=== PATIENT | male | born 1985 | race Caucasian/White ===

== ENCOUNTER 2017-11-04 18:48 | Emergency (ER) | payer BC, SELFPAY ==
[2017-11-04 20:10] VITALS: BP 167/80; PULSE 70; RESP 20; TEMP 36.4; O2SAT 98; BMI 29.0
[2017-11-04 20:31] LABS: UTC Influenza A Antigen Negative (Negative); UTC Influenza B Antigen Negative (Negative)
--- NOTE | 2017-11-04 20:39 | HMH.EDUTC ---
[facility] [place] Disposition Clinical Impression: Chills, Dark stools Headache Qualifiers: Headache type: unspecified Headache chronicity pattern: acute headache Intractability: not intractable Qualified Code(s): R51 - Headache Disposition: Home, Self-Care Condition on Discharge: Good Additional Instructions: Increase fluids Monitor temp so you know if chills are related to fever or not Tylenol and motrin as needed. Can take tylenol every 4 hours and motrin every 6 hours Labs were normal Follow up immediately for new or worsening symptoms but otherwise, see primary care in 1-2 days if symptoms persist. Referrals: Woody Granger MD [Primary Care Provider] - (Return immediately for new or worsening symptoms. Follow up with Dr. Granger' office in 1-2 days for persisting symptoms) Time of Disposition: 21:44 Medical Decision Making Vital Signs: 11/04/17 20:10 Temperature 97.5 F L Temperature Source Temporal Artery Scan Pulse Rate [Right Brachial] 70 Respiratory Rate 20 Blood Pressure [Right Arm] 167/80 Blood Pressure Mean [Right Arm] 109 Blood Pressure Source [Right Arm] Automatic Cuff Blood Pressure Position [Right Arm] Sitting 02 Sat by Pulse Oximetry 98 Oxygen Delivery Method Room Air - Lab Data Lab results reviewed: Yes: I reviewed the patient's lab results. Lab Results 11/04/17 20:08: Influenza Type A Ag Negative, Influenza Type B Ag Negative 11/04/17 20:50: WBC 7.0, RBC 5.49, Hgb 16.0, Hct 47.1, MCV 85.9, MCH 29.1, MCHC 33.9, RDW 12.1, Plt Count 161, MPV 10.3, Neut % (Auto) 59.4, Lymph % (Auto) 27.2, [place] % (Auto) 6.2, Eos % (Auto) 5.6, Baso % (Auto) 1.6, Neut # (Auto) 4.1, Lymph # (Auto) 1.9, [place] # (Auto) 0.4, Eos # (Auto) 0.4, Baso # (Auto) 0.1 11/04/17 20:50: Sodium 142, Potassium 3.9, Chloride 105, Carbon Dioxide 29, Anion Gap 11.9, BUN 17, Creatinine 1.00, Estimated Creat Clear 124, Estimated GFR 87, Est GFR ( Amer) 105, Glucose 103 Result diagrams: 11/04/17 20:50 11/04/17 20:50 Orders (Tests/Meds): ED MEDICATIONS Discontinued Medications Generic Name Dose Route Start Last Admin Trade Name Nadine PRN Reason Stop Dose Admin Ketorolac Tromethamine 30 mg 11/04/17 20:46 11/04/17 20:52 Toradol 30mg/Ml Vial IM 11/04/17 20:47 Not Given ONCE ONE - Marco Inquiry Pt receiving controlled substance: No - Reevaluation(s) Time: 21:45 Reevaluation #1: Reports feeling better already. SALAZAR 2/10 without medication. Reports refusing toradol because he doesn't like medications and doesn't want to take the risk of taking any medications and driving home. It is better now anyways . Says he mainly just wanted the blood work to ensure it was normal. [facility] [place] HPI - General Stated complaint: SALAZAR,Pain in Left Side Time Seen by Provider: 11/04/17 20:39 Mode of Arrival: Ambulatory Source of Information: Patient Limitations: No Limitations Description of Symptoms (Recalled from Triage Doc. by RN): headache, chills, body aches x2 days HEENT Symptoms (Recalled from RN notes): No Resp Symptoms (Recalled from RN notes): No Skin Symptoms (Recalled from RN notes): No MS Symptoms (Recalled from RN notes): Yes (body aches) Functional Status (Recalled from RN notes): n/a - History of Present Illness Provider Complaint: c/o headache starting at 5pm today. Intermittent since then. Resolved but came back worse. Tylenol at 5:30pm hasn't helped. Located in forehead, described as aching. Chills throughout the day today. No fever. Reporting he normally wouldn't have come in but his wanted him to today. Wants CBC. Reports he knows that when you loose blood, your H/H drops. I read that online today . Stool has been darker x months but not sticky or soft. Denies bodyaches all over although previously reported. No known sick contacts. - Related Data Allergies Allergy/AdvReac Type Severity Reaction Status Date / Time trimethoprim [From BACTRIM] Allergy Mild Verified 11/04/17 20:51 codeine [CODEINE] Vamsi
--- NOTE | 2017-11-04 20:46 | ED_ITS ---
[facility] [place] Impression: Chills, Dark stools Headache Qualifiers: Headache type: unspecified Headache chronicity pattern: acute headache Intractability: not intractable Qualified Code(s): R51 - Headache Disposition: Home, Self-Care Condition on Discharge: Good Additional Instructions: Increase fluids Monitor temp so you know if chills are related to fever or not Tylenol and motrin as needed. Can take tylenol every 4 hours and motrin every 6 hours Labs were normal Follow up immediately for new or worsening symptoms but otherwise, see primary care in 1-2 days if symptoms persist. Referrals: Woody Granger MD [Primary Care Provider] - (Return immediately for new or worsening symptoms. Follow up with Dr. Granger' office in 1-2 days for persisting symptoms) Time of Disposition: 21:44 Medical Decision Making Vital Signs: 11/04/17 20:10 Temperature 97.5 F L Temperature Source Temporal Artery Scan Pulse Rate [Right Brachial] 70 Respiratory Rate 20 Blood Pressure [Right Arm] 167/80 Blood Pressure Mean [Right Arm] 109 Blood Pressure Source [Right Arm] Automatic Cuff Blood Pressure Position [Right Arm] Sitting 02 Sat by Pulse Oximetry 98 Oxygen Delivery Method Room Air - Lab Data Lab results reviewed: Yes: I reviewed the patient's lab results. Lab Results 11/04/17 20:08: Influenza Type A Ag Negative, Influenza Type B Ag Negative 11/04/17 20:50: WBC 7.0, RBC 5.49, Hgb 16.0, Hct 47.1, MCV 85.9, MCH 29.1, MCHC 33.9, RDW 12.1, Plt Count 161, MPV 10.3, Neut % (Auto) 59.4, Lymph % (Auto) 27.2 , [place] % (Auto) 6.2, Eos % (Auto) 5.6, Baso % (Auto) 1.6, Neut # (Auto) 4.1, Lymph # (Auto) 1.9, [place] # (Auto) 0.4, Eos # (Auto) 0.4, Baso # (Auto) 0.1 11/04/17 20:50: Sodium 142, Potassium 3.9, Chloride 105, Carbon Dioxide 29, Anion Gap 11.9, BUN 17, Creatinine 1.00, Estimated Creat Clear 124, Estimated GFR 87, Est GFR ( Amer) 105, Glucose 103 Result diagrams: 11/04/17 20:50 11/04/17 20:50 Orders (Tests/Meds): ED MEDICATIONS Discontinued Medications Generic Name Dose Route Start Last Admin Trade Name Nadine PRN Reason Stop Dose Admin Ketorolac Tromethamine 30 mg 11/04/17 20:46 11/04/17 20:52 Toradol 30mg/Ml Vial IM 11/04/17 20:47 Not Given ONCE ONE - Marco Inquiry Pt receiving controlled substance: No - Reevaluation(s) Time: 21:45 Reevaluation #1: Reports feeling better already. SALAZAR 2/ without medication. Reports refusing toradol because he doesn't like medications and doesn't want to take the risk of taking any medications and driving home. It is better now anyways . Says he mainly just wanted the blood work to ensure it was normal. [facility] [place] General Stated complaint: SALAZAR,Pain in Left Side Time Seen by Provider: 11/04/17 20:39 Mode of Arrival: Ambulatory Source of Information: Patient Limitations: No Limitations Description of Symptoms (Recalled from Triage Doc. by RN): headache, chills, body aches x2 days HEENT Symptoms (Recalled from RN notes): No Resp Symptoms (Recalled from RN notes): No Skin Symptoms (Recalled from RN notes): No MS Symptoms (Recalled from RN notes): Yes (body aches) Functional Status (Recalled from RN notes): n/a - History of Present Illness Provider Complaint: c/o headache starting at 5pm today. Intermittent since then. Resolved but came back worse. Tylenol at 5:30pm hasn't helped. L
[2017-11-04 21:03] LABS: Basophils # 0.1 K/mm3 (0-0.2); Basophils % 1.6 % (0.1-2.0); Eosinophils # 0.4 K/mm3 (0.0-0.4); Eosinophils % 5.6 % (0.1-12.0); Hematocrit 47.1 % (42.0-52.0); Lymphocytes # 1.9 K/mm3 (0.7-4.5); Lymphocytes % 27.2 K/mm3 (10-50); Mean Corpuscular HGB Conc 33.9 g/dL (31.8-35.4); Mean Corpuscular Hemoglobin 29.1 pg (27.0-31.2); Mean Corpuscular Volume 85.9 fl (80-94); Mean Platelet Volume 10.3 fl (7.4-10.4); Monocytes # 0.4 K/mm3 (0.1-1.0); Monocytes % 6.2 % (1.7-9.3); Neutrophils # 4.1 K/mm3 (1.8-7.8); Neutrophils % 59.4 % (37.0-80.0); Platelet Count 161 K/mm3 (142-424); Red Blood Count 5.49 M/mm3 (4.60-6.20); Red Cell Distribution Width 12.1 % (11.5-17.5)
[2017-11-04 21:15] LABS: Anion Gap 11.9 mEq/L (5-15); Blood Urea Nitrogen 17 mg/dL (7-18); Carbon Dioxide 29 mmol/L (21.0-32.0); Chloride 105 mmol/L (98-107); Creatinine Clearance Estimated 124 mL/min (0-300); Estimated Glomerular Filt Rate 87 ml/min (>60); GFR (African American) 105 ML/MIN (>60); Glucose 103 mg/dL (74-106); Potassium 3.9 mmoL/L (3.5-5.1); Sodium 142 mmol/L (136-145)
[2017-11-04 21:54] VITALS: BP 160/80; PULSE 74; RESP 20; TEMP 36.7; O2SAT 98
== END 2017-11-04 21:55 | disposition home or self-care (01) ==
PROVIDERS: Emergency Provider Nurse Practitioner Family; Family Provider Family Medicine; PCP Family Medicine
DX: R51 Headache (principal); R68.83 Chills (without fever); R19.5 Other fecal abnormalities; R10.12 Left upper quadrant pain
CPT/HCPCS: 80048; 85025; 87804; 99202

== ENCOUNTER → 2018-01-31 09:12 | Outpatient (CLI) | payer BC, SELFPAY ==
--- NOTE | 2018-01-31 10:30 | US_ITS ---
US abdomen limited: HISTORY: Upper abdominal pain with diarrhea ITS.REASON: DIARRHEA, FATIGUE, NAUSEA ORDERING PHYSICIAN: Rosario Vila PATIENT AGE: 32 years FINDINGS: PANCREAS: Only partially visible due to overlying bowel gas. LIVER: No focal liver lesions demonstrated. Homogeneous echogenicity. No intrahepatic biliary ductal dilatation evident RIGHT KIDNEY: Unremarkable. Normal size and echogenicity. No hydronephrosis GALLBLADDER: The gallbladder wall is slightly thickened measuring up to 4 mm. No shadowing stones, cholecystic fluid, or biliary dilatation. There is a mild amount sludge. IMPRESSION: 1. Mildly thickened gallbladder wall with mild amount of sludge 2. No shadowing stones or other significant anomalies. 3. Pancreas not well-demonstrated
--- NOTE | 2018-01-31 10:36 | NVE_ITS ---
Venous Exam Indications: 729.5 Pain in limb. IMPRESSIONS Deep vein thrombosis involving the brachial veins of the right upper extremity History: Right upper extremity pain. Risk factors: Recent IV stick 1 week prior to exam redness pain Right upper extremity venous duplex. Doppler flow study including spectral analysis, color and saba scale imaging. CRITICAL FINDINGS - Reported to: Laurel - Read back and verified. - 01/31/18 - 1100 - Dvt Tables: Venous flow and imaging: + + + Location Flow properties + + + Right internal jugular Normal phasicity; spontaneous; compressible + + + Right subclavian Normal phasicity; spontaneous; normal augmentation; compressible + + + Right axillary Normal phasicity; spontaneous; normal augmentation; compressible + + + Right brachial Diminished phasicity; diminished spontaneity; diminished augmentation; partially compressible + + + Right cephalic Normal phasicity; spontaneous; normal augmentation; compressible + + + Right basilic Normal phasicity ; spontaneous; normal augmentation; compressible + + + Right radial Compressible + + + Right ulnar Compressible + + + Left subclavian Normal phasicity; spontaneous; normal augmentation; compressible + + + (Report amended ) Electronically signed by: Vladimir Johns [id number]
== END ==
PROVIDERS: Family Provider Family Medicine; PCP Family Medicine; Visit Provider Nurse Practitioner
DX: R19.7 Diarrhea, unspecified (principal); R53.83 Other fatigue; R11.0 Nausea; R22.9 Localized swelling, mass and lump, unspecified; M79.89 Other specified soft tissue disorders
CPT/HCPCS: 76705; 93971

== ENCOUNTER → 2018-02-18 09:59 | Outpatient (CLI) | payer BC, SELFPAY ==
--- NOTE | 2018-02-18 10:04 | NM_ITS ---
NM hepatobiliary wo pharm HISTORY: ITS.REASON: RUQ PAIN ORDERING PHYSICIAN: Rosario Vila PATIENT AGE: 32 years COMPARISON: None DOSE: 8.38 MCI TC Myoview INJ into LT ANT Fatty Meal Ensure FINDINGS: Homogeneous activity is present within the hepatic parenchyma. Activity is present in the gallbladder by 20 minutes. Activity is present in the small bowel by 15 minutes. The gallbladder ejection fraction is calculated to be 67% The patient did not report pain or other symptoms during the fatty meal ingestion. IMPRESSION: Unremarkable hepatobiliary scan and gallbladder ejection fraction. No evidence of common or cystic duct obstruction with normal gallbladder ejection fraction
== END ==
PROVIDERS: Family Provider Family Medicine; PCP Family Medicine; Visit Provider Nurse Practitioner
DX: R10.11 Right upper quadrant pain (principal)
CPT/HCPCS: 78226; A9537

== ENCOUNTER 2019-05-31 21:07 | Observation (INO) ==
[2019-05-31 21:32] LABS: Basophils # 0.1 K/mm3 (0-0.2); Basophils % 1.5 % (0.1-2.0); Eosinophils # 0.5 K/mm3 (0.0-0.4); Eosinophils % 5.5 % (0.1-12.0); Hematocrit 44.1 % (42.0-52.0); Hemoglobin 15.2 g/dL (14.1-18.0); Lymphocytes % 23.7 % (10-50); Mean Corpuscular HGB Conc 34.5 g/dL (31.8-35.4); Mean Corpuscular Volume 86.5 fl (80-94); Mean Platelet Volume 9.2 fl (7.4-10.4); Monocytes # 0.7 K/mm3 (0.1-1.0); Neutrophils # 5.1 K/mm3 (1.8-7.8); Neutrophils % 61.3 % (37.0-80.0); Platelet Count 196 K/mm3 (142-424); Red Cell Distribution Width 12.1 % (11.5-17.5); White Blood Count 8.3 K/mm3 (4.8-10.8)
[2019-05-31 21:43] LABS: Anion Gap 12.9 mEq/L (5-15); Blood Urea Nitrogen 17 mg/dL (7-18); Calcium 9.1 mg/dL (8.5-10.1); Carbon Dioxide 27 mmol/L (21.0-32.0); Chloride 103 mmol/L (98-107); Glucose 94 mg/dL (74-106); Sodium 139 mmol/L (136-145)
--- NOTE | 2019-05-31 22:03 | Emergency Department Note ---
ED Disposition Clinical Impression: Chest pain Qualifiers: Chest pain type: precordial pain Qualified Code(s): R07.2 - Precordial pain Disposition: Admitted as Observation Condition on Discharge: Good Referrals: Woody Granger MD [Primary Care Provider] - - Critical Care Critical Care Time: No Attestation: On 05/31/19, the high probability of a clinically significant, sudden or life threatening deterioration of the following system(s) required my full and direct attention, intervention and personal management. The time I documented below is in addition to time spent performing reported procedures but includes the following listed in this critical care notation. Medical Decision Making - Medical Records Medical records reviewed: Yes: I reviewed the patient's medical records. - Marco Inquiry Pt receiving controlled substance: No Vital Signs: 05/31/19 21:09 05/31/19 21:15 05/31/19 21:20 Temperature 98.7 F 98.3 F Temperature Source Oral Oral Pulse Rate [Right Radial] 96 H 86 80 Pulse Rate [Right] 75 Respiratory Rate 24 18 24 Blood Pressure [Right Arm] 112/65 122/79 125/77 Blood Pressure Mean [Right Arm] 80 93 93 Blood Pressure Source [Right Arm] Automatic Cuff Automatic Cuff Automatic Cuff Blood Pressure Position [Right Arm] Supine Supine Supine 02 Sat by Pulse Oximetry 98 98 98 Oxygen Delivery Method Room Air Room Air Room Air 05/31/19 21:25 05/31/19 21:30 05/31/19 21:39 Temperature Temperature Source Pulse Rate [Right Radial] 76 78 70 Pulse Rate [Right] Respiratory Rate 24 16 18 Blood Pressure [Right Arm] 118/75 119/51 L 118/70 Blood Pressure Mean [Right Arm] 89 73 86 Blood Pressure Source [Right Arm] Automatic Cuff Automatic Cuff Automatic Cuff Blood Pressure Position [Right Arm] Supine Supine Supine 02 Sat by Pulse Oximetry 98 98 98 Oxygen Delivery Method Room Air Room Air Room Air - Lab Data Lab results reviewed: Yes: I reviewed the patient's lab results. Lab Results 05/31/19 21:07: WBC 8.3, RBC 5.10, Hgb 15.2, Hct 44.1, MCV 86.5, MCH 29.9, MCHC 34.5, RDW 12.1, Plt Count 196, MPV 9.2, Neut % (Auto) 61.3, Lymph % (Auto) 23.7, [place] % (Auto) 8.0, Eos % (Auto) 5.5, Baso % (Auto) 1.5, Neut # (Auto) 5.1, Lymph # (Auto) 2.0, [place] # (Auto) 0.7, Eos # (Auto) 0.5 H, Baso # (Auto) 0.1 05/31/19 21:07: Sodium 139, Potassium 3.9, Chloride 103, Carbon Dioxide 27, Anion Gap 12.9, BUN 17, Creatinine 1.09, Estimated Creat Clear 97, Estimated GFR 78, Est GFR ( Amer) 95, Glucose 94, Calcium 9.1, Troponin I < 0.02 Result diagrams: 05/31/19 21:07 05/31/19 21:07 Orders (Tests/Meds): ED MEDICATIONS Generic Name Dose Route Start Last Admin Trade Name Freq PRN Reason Stop Dose Admin Sodium Chloride 1,000 mls @ 999 mls/hr 05/31/19 21:30 05/31/19 21:22 Sod Chlor 0.9% 1000ml Bag IV 05/31/19 22:30 999 mls/hr .Q1H1M EMILIE Administration Discontinued Medications Generic Name Dose Route Start Last Admin Trade Name Freq PRN Reason Stop Dose Admin Aspirin 324 mg 05/31/19 21:16 05/31/19 21:21 Aspirin 81mg Chewable Tablet PO 05/31/19 21:17 324 mg ONCE ONE Administration Nitroglycerin 0.4 mg 05/31/19 21:16 05/31/19 21:21 Nitrostat 0.4mg Sl Tablet SL 05/31/19 21:17 1 tab ONCE ONE Administration Nitroglycerin 0.4 mg 05/31/19 21:22 05/31/19 21:23 Nitrostat 0.4mg Sl Tablet SL 05/31/19 21:23 1 tab ONCE ONE Administration Nitroglycerin 1 gm 05/31/19 21:22 05/31/19 21:25 Nitroglycerin 1 Inch Oint Udp TD 05/31/19 21:23 1 gm ONCE ONE Administration ORDERS Category Date Time Status XR chest 2V Stat Exams 05/31/19 21:16 Taken Lipid Panel Stat Lab 05/31/19 22:21 Ordered - Radiology Data #1 Image(s): Chest Image Reviewed: Yes I reviewed the patient's radiology image Preliminary Findings: Normal/NAD - ECG Data Tracing #1 Normal Sinus Rhythm: Yes Ischemic changes: non-specific ST-T wave changes - Physician Consults Physician Consulted: lia Reason -: Admission Chest Pain HPI - General Chief Complaint: Chest Pain Stated Complaint: Chest Pain Time Seen by Provider: 05/31/19 21:15 Mode of Arrival: Ambulatory Source of Information: Patient, Spouse, Medical Record Limitations: No Limitations Description of Symptoms (Recalled from ER Triage Doc. by RN): Pt states he has had left chest pain for 2 weeks - History of Present Illness HPI narrative: wm with episodes of ant chest pain progressive over the last week both with act and rest - described as pressure - he saw pcp and is planning cardiac eval MD complaint: chest pain indicative of cardiac Onset (ago): day(s) Duration: intermittent Activity at onset: during rest Pain location: substernal Severity: moderate Risk Factors for CAD: Family Hx of CAD Treatments prior to or on arrival for Cardiac Chest Pain: none - GLADYS Score for Non-Stemi Age of Patient: 30-39 years old Heart Rate: 90-109 bpm Systolic Blood Pressure: 100-119 mmHg Serum Creatinine: 0.80-1.19 mg/dl CHF [place] Class: I-No CHF Other Risk Factors: None Non-Stemi Risk Score: 73 - Related Data Home Medications Medication Instructions Recorded Confirmed No Known Home Medications 11/24/18 05/31/19 Allergies Allergy/AdvReac Type Severity Reaction Status Date / Time trimethoprim [From BACTRIM] Allergy Mild Verified 01/06/19 10:10 codeine [CODEINE] Allergy Unknown Verified 01/06/19 10:10 [facility] History - Hepatitis A Screen Drug use history?: No High risk sexual behaviors?: No History of sexually transmitted infection?: No Currently employed?: No Childcare worker?: No Do you have indoor plumbing?: Yes Do you have electricity?: Yes Attestation statement:: This patient has been screened for Hepatitis A risk factors. I have reviewed the patient's past medical history: Yes Medical History: Reports:: Depression Denies:: Cancer, Diabetes Mellitus Type 1, Diabetes Mellitus Type 2, Hypertension, Internal Pacemaker, MRSA, Seizures Other Medical History: Denies: Blood Transfusion Reaction Comment: DVT Laterality Cases: Bilateral: Myringotomy (Ear Tubes) Other Surgeries: Yes: No Previous Surgery. No: Pacemaker Amputation: No Fractures: No - Social History Smoking Status: Never smoker Alcohol Intake: never Substance Use Type: denies use Occupational Status: employed Housing: house Household Members: family - Psychiatric History Pschychiatric History:: Reports:: Depression Family Hx:: Cancer, Diabetes ROS Obtained: Yes All systems reviewed & no additional complaints - Constitutional Constitutional: Denies fever(s) - Eyes Eyes: Denies change in vision - ENT Ears, Nose, Mouth, and Throat: Denies sore throat - Cardiovascular Cardiovascular: Reports chest pain, Denies dyspnea - Respiratory Respiratory: No cough - Gastrointestinal Gastrointestingal: Denies: abdominal pain - Genitourinary Male Genitourinary: Denies hematuria - Musculoskeletal Musculoskeletal: Denies joint pain - Integumentary/Breasts Skin/Breast: Denies rash - Neurologic Neurologic: Denies seizure-like activity Physical Exam - General General appearance: alert - Head Head exam: normocephalic - Eye Eye exam: Present: PERRL, EOMI - ENT ENT exam: Present: mucous membranes moist - Neck Neck exam: Present: trachea midline - Respiratory Respiratory exam: Present: normal lung sounds bilaterally. Absent: respiratory distress - Cardiovascular Cardiovascular exam: Present: regular rate, systolic murmur. Absent: rubs - Abdominal Exam Abdominal exam: Present: soft - Extremities Exam Extremities exam: Present: full ROM - Neurological Exam Neurological exam: Present: alert, oriented X3, CN II-XII intact - Psychiatric Psychiatric exam: Present: normal affect - Skin Skin exam: Absent: rash
[2019-06-01 04:54] LABS: Anion Gap 11.5 mEq/L (5-15); Blood Urea Nitrogen 14 mg/dL (7-18); Calcium 8.3 mg/dL (8.5-10.1); Carbon Dioxide 29 mmol/L (21.0-32.0); Chloride 106 mmol/L (98-107); Glucose 95 mg/dL (74-106); Sodium 143 mmol/L (136-145)
[2019-06-01 05:00] LABS: Basophils # 0.1 K/mm3 (0-0.2); Basophils % 1.5 % (0.1-2.0); Eosinophils # 0.5 K/mm3 (0.0-0.4); Eosinophils % 6.8 % (0.1-12.0); Hemoglobin 13.5 g/dL (14.1-18.0); Lymphocytes # 1.9 K/mm3 (0.7-4.5); Lymphocytes % 27.6 % (10-50); Mean Corpuscular HGB Conc 34.5 g/dL (31.8-35.4); Mean Corpuscular Volume 87.3 fl (80-94); Mean Platelet Volume 9.1 fl (7.4-10.4); Monocytes # 0.6 K/mm3 (0.1-1.0); Monocytes % 8.5 % (1.7-9.3); Neutrophils # 3.8 K/mm3 (1.8-7.8); Neutrophils % 55.6 % (37.0-80.0); Platelet Count 175 K/mm3 (142-424); Red Blood Count 4.47 M/mm3 (4.60-6.20); Red Cell Distribution Width 12.1 % (11.5-17.5); White Blood Count 6.8 K/mm3 (4.8-10.8)
--- NOTE | 2019-06-01 07:20 | Pharmacy Consult Notes ---
[facility] Pharmacy VTE Monitoring - Patient Demographics Admission date: 05/31/19 Report Date: 06/01/19 Time: 07:19 Allergies/Adverse Reactions: Patient Allergies trimethoprim [From BACTRIM] Allergy (Mild, Verified 01/06/19 10:10) codeine [CODEINE] Allergy (Unknown, Verified 01/06/19 10:10) Height: 1.65 m Weight: 68.577 kg Patient Problems: Current Active Problems Chest pain (Acute) - VTE Risk Labs: VTE Related Lab Results Hgb 13.5 g/dL (14.1-18.0) L D 06/01/19 04:30 Hct 39.0 % (42.0-52.0) L 06/01/19 04:30 Plt Count 175 K/mm3 (142-424) 06/01/19 04:30 BUN 14 mg/dL (7-18) 06/01/19 04:30 Creatinine 1.04 mg/dL (0.70-1.30) 06/01/19 04:30 Estimated Creat Clear 98 mL/min (50-200) 06/01/19 04:30 Was VTE Risk Assessment Performed: Yes VTE Score: 2 VTE Risk Level: Moderate Risk - Prophylaxis VTE Prophylaxis Ordered?: Yes Types of VTE Prophylaxis: TEDS Knee High Location of Applied Device: Bilateral Lower Extremeties - VTE Diagnosis Confirmed Treatment or plan recommended: Continue Current Treatment
--- NOTE | 2019-06-01 07:22 | H&P/Discharge Summary ---
General - General Admission date:: 05/31/19 Discharge date: 06/01/19 *Admission Date: 05/31/19 *Chief complaint: Chest pain *History of present illness: 33-year-old male presented to the emergency department with 2 weeks of episodes of chest pain. Apparently he had been seen in the office and cardiac work-up was suggested. Patient became afraid by his chest pain yesterday evening and came to the emergency department. Patient reports pain in the upper left chest and anterior shoulder. Pain occurs at rest. Patient states pain is been so severe at times over the last 2 weeks that he has doubled over in pain. Pain does not radiate down the arm. Sometimes taking a deep breath or coughing will trigger the pain. Some movements of the upper body will trigger the pain. Patient does not have hypertension, hyperlipidemia, diabetes nor is he a smoker. His father who is in his mid 60s recently had to have bypass surgery. His father is a smoker. Patient ruled out for OK overnight and had no recurrence of chest pain [facility] History I have reviewed the patient's past medical history: Yes Medical History: Reports:: Depression Denies:: Cancer, Diabetes Mellitus Type 1, Diabetes Mellitus Type 2, Hypertension, Internal Pacemaker, MRSA, Seizures *Have you ever received a pneumonia vaccine?: No *Have you received a flu vaccine this season?: No Other Medical History: Denies: Blood Transfusion Reaction Laterality Cases: Bilateral: Myringotomy (Ear Tubes) Other Surgeries: Yes: No Previous Surgery, Cholecystectomy. No: Pacemaker Amputation: No Fractures: No - *Social History Educational Level: Completed High School Smoking Status: Never smoker Alcohol Intake: never Substance Use Type: denies use *Occupational Status:: employed Housing: house Household Members: family *Travel in the last 8 weeks: None - Psychiatric History Pschychiatric History:: Reports:: Depression Family Hx:: Cancer, Diabetes Review of Systems - Review of Systems Review of systems:: pertinent systems reviewed and negative unless documented below - *Neurologic Denies seizure-like activity Exam Vital signs and Labs for Last 24 Hours: Temp Pulse Resp BP Pulse Ox 98.1 F 60 15 111/53 L 96 06/01/19 03:47 06/01/19 04:00 06/01/19 03:47 06/01/19 03:47 06/01/19 03:47 Laboratory Results - last 24 hr 05/31/19 21:07: WBC 8.3, RBC 5.10, Hgb 15.2, Hct 44.1, MCV 86.5, MCH 29.9, MCHC 34.5, RDW 12.1, Plt Count 196, MPV 9.2, Neut % (Auto) 61.3, Lymph % (Auto) 23.7, [place] % (Auto) 8.0, Eos % (Auto) 5.5, Baso % (Auto) 1.5, Neut # (Auto) 5.1, Lymph # (Auto) 2.0, [place] # (Auto) 0.7, Eos # (Auto) 0.5 H, Baso # (Auto) 0.1 05/31/19 21:07: Sodium 139, Potassium 3.9, Chloride 103, Carbon Dioxide 27, Anion Gap 12.9, BUN 17, Creatinine 1.09, Estimated Creat Clear 97, Estimated GFR 78, Est GFR ( Amer) 95, Glucose 94, Calcium 9.1, Troponin I < 0.02 06/01/19 01:35: Troponin I < 0.02 06/01/19 04:30: WBC 6.8, RBC 4.47 L, Hgb 13.5 L D, Hct 39.0 L, MCV 87.3, MCH 30 .1, MCHC 34.5, RDW 12.1, Plt Count 175, MPV 9.1, Neut % (Auto) 55.6, Lymph % (Auto) 27.6, [place] % (Auto) 8.5, Eos % (Auto) 6.8, Baso % (Auto) 1.5, Neut # (Auto) 3.8, Lymph # (Auto) 1.9, [place] # (Auto) 0.6, Eos # (Auto) 0.5 H, Baso # (Auto) 0.1 06/01/19 04:30: Sodium 143, Potassium 3.5, Chloride 106, Carbon Dioxide 29, Anion Gap 11.5, BUN 14, Creatinine 1.04, Estimated Creat Clear 98, Estimated GFR 83, Est GFR ( Amer) 100, Glucose 95, Calcium 8.3 L, Magnesium 2.1, Troponin I < 0.02 I & O for Last 24 hours: Intake & Output 05/29/19 05/30/19 05/31/19 06/01/19 11:59 11:59 11:59 11:59 Intake Total 1480 / 1480 Balance 1480 / 1480 Weight 151 lb 3 oz Narrative: Patient is awake and alert laying in bed. He is in no distress. Head is without lesions. Pupils are reactive to light. Oropharynx is moist and clear. Neck has no carotid bruits or jugular venous distention. Lungs are clear to auscultation. Heart has a regular rate and rhythm. No murmurs auscultated. Abdomen is soft nontender nondistended. Extremities have no edema. Hospital Course Hospital Course: Patient ruled out for OK overnight and had no recurrence of chest pain. He was discharged home on the morning of June 01 and can complete his work-up as an outpatient try to reassure the patient that he is at extremely low risk of coronary artery disease Results Labs on day of discharge: Labs from last 24 hours 06/01/19 06/01/19 06/01/19 04:30 04:30 01:35 WBC 6.8 RBC 4.47 L Hgb 13.5 L D Hct 39.0 L MCV 87.3 MCH 30.1 MCHC 34.5 RDW 12.1 Plt Count 175 MPV 9.1 Neut % (Auto) 55.6 Lymph % (Auto) 27.6 [place] % (Auto) 8.5 Eos % (Auto) 6.8 Baso % (Auto) 1.5 Neut # (Auto) 3.8 Lymph # (Auto) 1.9 [place] # (Auto) 0.6 Eos # (Auto) 0.5 H Baso # (Auto) 0.1 Sodium 143 Potassium 3.5 Chloride 106 Carbon Dioxide 29 Anion Gap 11.5 BUN 14 Creatinine 1.04 Estimated Creat Clear 98 Estimated GFR 83 Est GFR ( Amer) 100 Glucose 95 Calcium 8.3 L Magnesium 2.1 Troponin I < 0.02 < 0.02 05/31/19 05/31/19 21:07 21:07 WBC 8.3 RBC 5.10 Hgb 15.2 Hct 44.1 MCV 86.5 MCH 29.9 MCHC 34.5 RDW 12.1 Plt Count 196 MPV 9.2 Neut % (Auto) 61.3 Lymph % (Auto) 23.7 [place] % (Auto) 8.0 Eos % (Auto) 5.5 Baso % (Auto) 1.5 Neut # (Auto) 5.1 Lymph # (Auto) 2.0 [place] # (Auto) 0.7 Eos # (Auto) 0.5 H Baso # (Auto) 0.1 Sodium 139 Potassium 3.9 Chloride 103 Carbon Dioxide 27 Anion Gap 12.9 BUN 17 Creatinine 1.09 Estimated Creat Clear 97 Estimated GFR 78 Est GFR ( Amer) 95 Glucose 94 Calcium 9.1 Magnesium Troponin I < 0.02 DS: Diagnosis - Discharge Diagnosis (1) Chest pain Status: Acute (2) Shoulder pain Status: Acute Discharge Plan - Patient Discharge Instructions ACTIVITY: Continue current activity DIET: continue same diet Patient Instructions: Heart-Healthy Diet, DI for Chest Pain - Follow up Plan Disposition: Home, Self-Long-Term Medications: Home Medications Medication Instructions Recorded Confirmed Type No Known Home Medications 11/24/18 05/31/19 History Meloxicam 15 mg PO DAILY #30 tab 06/01/19 Rx Prescriptions/Medication Reconciliation: New Meloxicam 15 mg PO DAILY #30 tab No Action No Known Home Medications - Problem Reconciliation Problems Reviewed?: Yes
--- NOTE | 2019-06-01 19:23 | Cardiology Report ---
APPROVED REPORT EXAM: Comprehensive 2D, Doppler, and color-flow Echocardiogram Automotive Worker: Katlyn Padilla CRT Ht: 5 ft 5 in Wt: 155lbs BSA: 1.77 BP: 118/70 mmHg Indications: CP 2D Dimensions IVSd 1.40 cm LVEF (Visual) 50.70 % PWd 1.10 cm LVDd 4.30 cm LVDs 3.20 cm LVOT 2.00 cm (M/F) 1.5-2.5 M-Mode Dimensions LA Diam 3.40 cm (1.9-4.0)Ao Diam 3.40 cm (2.0-3.7) AV Cusp 2.30 cm (1.5-2.6) LV Diastology E/A Ratio 1.50MED E' 7.80 (< 7 cm/sec) E'/MED E' Ratio11.40 (>14)LAT E' 14.90 (<10 cm/sec) E/LAT E' Ratio 6.00 (>14) Aortic Valve AoV Peak David. 121.00 (50-130 cm/s)AO Peak GR. 6.00 mmHg Mitral Valve MV E Max David. 89.30 (40-130 cm/s)MV A Velocity 60.20 (40-130 cm/s) E/A Ratio 1.50 Pulmonary Valve LA End VMAX 117.00 cm/s PA Accel Time 141.00 (>120 msec) Tricuspid Valve TR P. Avewpuln102.00 cm/sRAP Estimate 10.00 mmHg RVSP 32.00 mmHg Left Ventricle Left atrium is mildly enlarged, left ventricle is normal size, left ventricle wall thickness is upper limit of the normal, there is preserved left ventricular systolic function, visually estimated ejection fraction 55% with no regional wall motion abnormality. Grade 1 diastolic dysfunction seen without tissue Doppler evidence of raise left atrial pressure. Right Ventricle Right atrium and right ventricular normal size and contractility. Aortic Valve Aortic valve is minimally thickened and calcified., There is no aortic stenosis, there is trace aortic insufficiency. Mitral Valve Mitral valve leaflets are minimally thickened, there is no mitral stenosis, there is mild mitral regurgitation. Tricuspid Valve Tricuspid valve is grossly normal, there is mild tricuspid regurgitation, tricuspid regurgitation jet velocity is inadequate for calculation of the right ventricular systolic pressure. Pulmonic Valve Pulmonic valve is poorly visualized. Great Vessels Aortic root is normal size. Pericardium No significant pericardial effusion noted. Conclusion 1. Normal left ventricular size, preserved left ventricular systolic function, visually estimated ejection fraction 55% with no regional wall motion abnormality, grade 1 diastolic dysfunction seen without tissue Doppler evidence of raise left atrial pressure. 2. Trace aortic, mild mitral and tricuspid regurgitation. 3. No significant pericardial effusion noted. Electronically signed by : Daniel Bush, 06/01/2019 19:23:01
--- NOTE | 2019-06-02 19:59 | Electrocardiograph Report ---
APPROVED REPORT Exam: Resting ECG HR:72 bpm ECG Measurements Heart Rate 72 AXES MD 162 P 39 QRSd 88 QRS 76 QT 404 T42 QTc 442 <Conclusion> Normal sinus rhythm Normal ECG Electronically signed by : Woody Collado, 06/02/2019 19:58:54
== END 2019-06-01 08:40 | disposition home or self-care (01) ==
LOC: 2ND 21:07 → ER 21:07 → 2ND 22:40
PROVIDERS: ADMIT Internal Medicine Adolescent Medicine; ATTEND Family Medicine
DX: R07.9 Chest pain, unspecified
CPT/HCPCS: 36415; 71020; 71046; 80048; 83735; 84484; 85025; 93005; 93306; 96365; 99284; G0378

== ENCOUNTER → 2019-06-10 07:59 | Outpatient (CLI) | payer BC, SELFPAY ==
--- NOTE | 2019-06-10 | CA_ITS ---
APPROVED REPORT Exam: Exercise Treadmill Technologist: Gaviota Fox, Ht: 5 ft 5 in Wt: 153 lbs BSA: 1.77 m2 HR: 84 bpm BP: 119/77 mmHg Indications: Chest pain, Shortness of Breath, Dizziness Stress Test Details Test: Víctor HR Resting HR: 75 bpm Max Heart Rate (APMHR): 188 bpm Max HR Achieved: 152 bpm Target HR (85% APMHR): 159 bpm % of APMHR: 80 Recovery HR: 95 bpm BP Resting BP: 119/77 mmHg Max BP: 131/82 mmHg Recovery BP: 116.0/76.0 mmHg ECG Clinical Exercise duration: 11:06 min Highest Stage Achieved: Exercise capacity: 12.8 METs Stress ECG Conclusion Resting ECG: Normal sinus rhythm, right axis deviation, T wave abnormality in III, aVF, early repolarization changes. Symptoms: Mild chest heaviness, light headed Arrhythmias/Ectopy: Rare PVC ST-T Changes: No significant changes in baseline abnormalities in leads III and aVF with exercise. Normal ST response to exercise in all other leads. Conclusion: Mild chest pain with exercise. Normal exercise stress EKGs. GXT only (no imaging). Test Summary Stage 4 01:00 16.0 4.2 144 . . . . REST . . . . . . . Standing REST 05:53 0.0 0.0 75 . 119/ 77 . . Stage 1 01:00 10.0 1.7 93 . . . . Stage 1 02:00 10.0 1.7 99 . . . . Stage 1 03:00 10.0 1.7 96 . . . . Stage 2 01:00 12.0 2.5 104 . 118/ 80 . . Stage 2 02:00 12.0 2.5 110 . 118/ 80 . . Stage 2 03:00 12.0 2.5 110 . 124/ 80 . . Stage 3 01:00 14.0 3.4 120 . . . . Stage 3 02:00 14.0 3.4 127 . . . . Stage 3 . . . . . . . Chest pain Stage 3 03:00 14.0 3.4 121 . 130/ 78 . . Stage 4 01:00 16.0 4.2 144 . . . . Stage 4 02:00 16.0 4.2 152 . . . . Stage 4 02:06 16.0 4.2 151 . . . Stop exercise at 11:06 RECOVERY . . . . . . . lightheaded RECOVERY 01:00 0.0 0.0 124 . . . . RECOVERY 02:00 0.0 0.0 96 . 124/ 82 . . RECOVERY 03:00 0.0 0.0 112 . 131/ 82 . . RECOVERY 04:00 0.0 0.0 91 . 131/ 82 . . RECOVERY 05:00 0.0 0.0 101 . 131/ 82 . . RECOVERY 05:24 0.0 0.0 91 . 116/ 76 . . Electronically signed by : Woody Collado, 06/10/2019 10:33:51
--- NOTE | 2019-06-10 | CA_ITS ---
APPROVED REPORT Social Services Designee: ALEXANDRO Laterality: Bilateral Study Quality: Good Indications: Dizziness and Vertigo Risk Factors Left sided weakness and numbness Doppler Spectral Velocity Analysis ECA (R) 105.00/ cm/s ECA (L) 93.70/ cm/s dICA (R) 61.50/30.00 cm/s dICA (L) 57.80/27.70 cm/s Mimi (R) 77.50/33.50 cm/s Mimi (L) 71.50/32.20 cm/s pICA (R) 80.10/31.40 cm/s pICA (L) 76.20/28.30 cm/s dCCA (R) 98.20/28.30 cm/s dCCA (L) 102.00/33.00 cm/s pCCA (R) 131.00/22.80 cm/s pCCA (L) 119.00/30.60 cm/s Vert (R) 41.30/ cm/s Vert (L) 38.80/ cm/s ICA/CCA 0.82 ICA/CCA 0.75 Conclusion Duplex evaluation demonstrates no evidence of hemodynamically significant stenosis of the right Internal Carotid Artery. Duplex evaluation demonstrates no evidence of hemodynamically significant stenosis of the left external Carotid Artery. Electronically signed by : Vladimir Johns MD 06/11/2019 16:33:38
== END ==
PROVIDERS: PCP Family Medicine; Visit Provider Nurse Practitioner
DX: R07.9 Chest pain, unspecified (principal); R06.02 Shortness of breath; R53.83 Other fatigue; R42 Dizziness and giddiness
CPT/HCPCS: 93017; 93880

== ENCOUNTER 2021-06-05 20:00 | Emergency (ER) | payer OTHER, SELFPAY ==
[2021-06-05 20:40] VITALS: BP 117/78; PULSE 93; RESP 18; TEMP 38.2; O2SAT 96; BMI 28.2
--- NOTE | 2021-06-05 21:03 | HMH.EDUTC ---
[facility] [place] [facility] Disposition Clinical Impression: Bronchitis Sinusitis Qualifiers: Sinusitis location: unspecified location Chronicity: unspecified Qualified Code(s): J32.9 - Chronic sinusitis, unspecified Disposition: Home, Self-Care Condition on Discharge: Good Instructions: Sinusitis, DI for Sinusitis, Acute Bronchitis Additional Instructions: ? Start antibiotic today. Be sure to complete entire prescription even if feeling better ? Monitor temp. Tylenol every 4 hours as needed and / or ibuprofen every 6 hours as needed ( As long as your primary care physician has told you that it ok to take both. For fever/aches/pains ER if no less than 101 despite Tylenol or Motrin ? Humidifier/vaporizer or hot steamy shower ? Inhaler every 4-6 hours as needed like we discussed. If unsure how to use it, ask pharmacist to demonstrate how. Should help open airways and improve cough, wheezing, and shortness of breath ? Mucinex during the day for your cough and cough suppressant only at night. Be sure to drink lots of water. Insurance may not cover a prescriptions for mucinex. Might be cheaper to get 400mg tablets and take 2 tablet in the morning, mid-day and evening with lots of water. Follow up IMMEDIATELY for new or worsening of symptoms OR no noticeable improvement over the next 48-72 hours. 911 immediately for any life threatening symptoms such as chest pain or difficulty breathing Prescriptions: Albuterol Sulfate [Proventil-HFA 90mcg/puff Inh] 1 - 2 puffs IH Q6HP PRN #1 each PRN Reason: Shortness Of Breath Prescription Printed Azithromycin [Z-Epi 250mg Tab] 250 mg PO DIRECTED #6 tab Prescription Printed Referrals: Woody Granger MD [Primary Care Provider] - As needed Time of Disposition: 21:12 Medical Decision Making - Marco Inquiry Pt receiving controlled substance: No Marco was queried for this patient: No Vital Signs: 06/05/21 20:40 Temperature 100.7 F H Temperature Source Oral Pulse Rate [Right Brachial] 93 H Respiratory Rate 18 Blood Pressure [Right Arm] 117/78 Blood Pressure Mean [Right Arm] 91 Blood Pressure Source [Right Arm] Automatic Cuff Blood Pressure Position [Right Arm] Sitting 02 Sat by Pulse Oximetry 96 Oxygen Delivery Method Room Air [facility] HPI - General Stated complaint: SOB Time Seen by Provider: 06/05/21 21:03 Mode of Arrival: Ambulatory Source of Information: Patient Limitations: No Limitations Description of Symptoms (Recalled from Triage Doc. by RN): PATIENT C/O SOA, THINKS HE HAS BRONCHITIS HEENT Symptoms (Recalled from RN notes): No Resp Symptoms (Recalled from RN notes): Yes Skin Symptoms (Recalled from RN notes): No MS Symptoms (Recalled from RN notes): No Functional Status (Recalled from RN notes): WNL - History of Present Illness Provider Complaint: Patient states that he gets sinusitis and bronchitis every year around this time States that he was recently pulling up yary and it was moldy and started his sinuses and coughing States that it has continued to get worse States that he has not been around anyone with COVID and does not want to get tested - Related Data Previous Rx's Medication Instructions Recorded Albuterol Sulfate [Proventil-HFA 1 - 2 puffs IH Q6HP PRN #1 each 06/05/21 90mcg/puff Inh] Azithromycin [Z-Epi 250mg Tab] 250 mg PO DIRECTED #6 tab 06/05/21 Allergies Allergy/AdvReac Type Severity Reaction Status Date / Time trimethoprim [From BACTRIM] Allergy Mild Verified 08/24/20 10:01 codeine [CODEINE] Allergy Unknown Verified 08/24/20 10:01 - Worker's Comp Is this a Worker's Comp case?: No [facility] History - Hepatitis A Screen Drug use history?: No High risk sexual behaviors?: No History of sexually transmitted infection?: No Currently employed?: No Childcare worker?: No Do you have indoor plumbing?: Yes Do you have electricity?: Yes Attestation statement:: This patient has been screened for Hepatitis A risk factors. I have
[2021-06-05 21:07] VITALS: BP 117/78; PULSE 93; RESP 18; TEMP 38.2; O2SAT 96
== END 2021-06-05 21:19 | disposition home or self-care (01) ==
PROVIDERS: Emergency Provider Nurse Practitioner; PCP Family Medicine
DX: J20.9 Acute bronchitis, unspecified (principal); J32.9 Chronic sinusitis, unspecified
CPT/HCPCS: 99202; G0463

== ENCOUNTER 2022-05-26 11:20 | Emergency (ER) | payer BC, SELFPAY ==
[2022-05-26 13:00] VITALS: BP 142/93; PULSE 60; RESP 18; TEMP 36.4; O2SAT 99; BMI 28.5
[2022-05-26 13:37] LABS: UTC Strep Screen (Rapid) Negative (Negative)
--- NOTE | 2022-05-26 13:44 | EXP.UTC ---
Discharge Plan Disposition Patient Disposition: Home, Self-Care Condition: Good Referrals Follow up/Referrals: Woody Granger MD [Primary Care Provider] - See instructions Activity Restrictions/Add. Instructions Additional Instructions/Restrictions: Lou;e warm salt water for throat irritation Over the counter Motrin and Tylenol if you have fever Warm tea with honey may help with throat irritation Follow up with your Family Doctor if no improvement or any worsening symptoms Clinical Impressions Clinical Impression: URI (upper respiratory infection) Stand Alone Forms Stand Alone Forms: Work/School Release Instructions Patient Instructions: Sore Throat Discharge ED Provider: Arlene Almeida [facility] [place] HPI General Stated complaint: sore throat Mode of Arrival: Ambulatory Source of Information: Patient Limitations: No Limitations Time Seen by Provider: 05/26/22 13:44 Description of Symptoms (Recalled from Triage Doc. by RN): PATIENT C/O SORE THROAT X 2 DAYS HEENT Symptoms (Recalled from RN notes): Yes Resp Symptoms (Recalled from RN notes): No Skin Symptoms (Recalled from RN notes): No MS Symptoms (Recalled from RN notes): No Functional Status (Recalled from RN notes): WNL History of Present Illness Provider Complaint: Patient states that he has been having sore throat for the last couple of days State that he has had some allergy drainage but not had fever or anything and worried that he may have strep throat Related Data Allergies Allergy/AdvReac Type Severity Reaction Status Date / Time trimethoprim [From BACTRIM] Allergy Mild Verified 08/24/20 10:01 codeine [CODEINE] Allergy Unknown Verified 08/24/20 10:01 Worker's Comp Is this a Worker's Comp case?: No PFSH PFSH Surgical History History of cholecystectomy S/P tympanic tube insertion Social History (Updated 05/26/22 @ 13:15 by Mahi Crawford RN) Smoking Status: Never smoker second hand exposure: No alcohol intake: never substance use type: denies use current occupational status: other Travel in the last 8 weeks: None household members: family housing: house caffeine: Yes ROS Obtained: Yes All systems reviewed & no additional complaints except as documented and Yes Systems reviewed as appropriate & no additional complaints except as documented ENT Ears, Nose, Mouth, and Throat: Reports system reviewed and no additional complaints, except as documented, Reports as per HPI, Reports nasal congestion, Reports nasal discharge and Reports sore throat Cardiovascular Cardiovascular: Reports system reviewed and no additional complaints, except as documented and Reports as per HPI Respiratory Respiratory: Reports system reviewed and no additional complaints, except as documented and Reports as per HPI Physical Exam General General appearance: alert and in no apparent distress Expanded ENT Exam Nose exam: Absent sinus tenderness Comment: Pharyngeal erythyema noted with PND Respiratory Respiratory exam: Present normal lung sounds bilaterally; Absent respiratory distress or wheezes Cardiovascular Cardiovascular exam: Present regular rate, normal rhythm and normal heart sounds Neurological Exam Neurological exam: Present alert, oriented X3 and normal gait Medical Decision Making Marco Inquiry Pt receiving controlled substance: No Marco was queried for this patient: No Vital Signs: 05/26/22 13:00 Temperature 97.6 F Temperature Source Oral Pulse Rate [Right Brachial] 60 Respiratory Rate 18 Blood Pressure [Right Arm] 142/93 H Blood Pressure Mean [Right Arm] 109 Blood Pressure Source [Right Arm] Automatic Cuff Blood Pressure Position [Right Arm] Sitting 02 Sat by Pulse Oximetry 99 Oxygen Delivery Method Room Air Lab Data Lab results reviewed: Yes I reviewed the patient's lab results. Lab Results 05/26/22 13:06: Strep [facility] Negative Orders (Te
[2022-05-26 13:51] VITALS: BP 142/93; PULSE 60; RESP 18; TEMP 36.4; O2SAT 99
== END 2022-05-26 13:56 | disposition home or self-care (01) ==
PROVIDERS: Emergency Provider Nurse Practitioner; PCP Family Medicine
DX: J02.9 Acute pharyngitis, unspecified (principal)
CPT/HCPCS: 87880; 99212; G0463

== ENCOUNTER 2024-05-10 19:58 | Emergency (ER) | payer OTHER, SELFPAY ==
[2024-05-10 19:59] VITALS: BP 153/103; PULSE 76; RESP 18; TEMP 37.3; O2SAT 99; BMI 29.9
--- NOTE | 2024-05-10 20:09 | XR_ITS ---
PROCEDURE INFORMATION: Exam: XR Chest Exam date and time: 05/10/2024 8:10 PM Age: 38 years old Clinical indication: Chest wall pain; Additional info: Ll chest wall pain TECHNIQUE: Imaging protocol: Radiologic exam of the chest. Views: 2 views. COMPARISON: CR XR CHEST 2V 05/31/2019 9:47 PM FINDINGS: Lungs: Hypoventilated lungs with bronchovascular crowding. No consolidation. Pleural spaces: No pleural effusion. No pneumothorax. Heart/Mediastinum: No cardiomegaly. Bones/joints: No acute findings. Intraperitoneal space: Right upper quadrant surgical clips. IMPRESSION: No acute pulmonary findings.
--- NOTE | 2024-05-10 20:10 | ECG_ITS ---
APPROVED REPORT Exam: Resting ECG HR:77 bpm ECG Measurements Heart Rate 77 AXES CA 161 P 47 QRSd 89 QRS 22 QT 365 T 56 QTc 397 Conclusion Sinus rhythm Frequent PVCs Electronically signed by : ANGELITA WESTBROOK, 05/10/2024 23:27:18
--- NOTE | 2024-05-10 20:18 | HMH.EDGENADL ---
Discharge Plan Disposition Patient Disposition: Home, Self-Care Referrals Follow up/Referrals: Woody Granger MD [Primary Care Provider] - See instructions Activity Restrictions/Add. Instructions Additional Instructions/Restrictions: Call your family doctor to establish care for this visit to the emergency department and schedule follow-up within 48 hours to ensure improvement. If you have any worsening of your condition or any other concerning signs or symptoms, return to the emergency department or your primary care doctor for further evaluation. Take Tylenol 1000 mg every 6 hours (4 times daily) and ibuprofen 400 mg every 6 hours (4 times daily) as needed with food and water to prevent GI upset and kidney damage. Clinical Impressions Clinical Impression: Acute left flank pain Print Language Print Language: Trinidadian Discharge ED Provider: Rufino Hector General Adult HPI <KARINA Garay - Last Filed: 05/10/24 20:19> General Chief complaint: PAIN Stated complaint: left side pain Time Seen by Provider: 05/10/24 20:01 Mode of Arrival: Ambulatory Source of Information: Patient Limitations: No Limitations Description of Symptoms (Recalled from ER Triage Doc. by RN): patient reports at around 1 today he began having pain in his left side over his ribs. pain began after he ate. he denies any radiation of pain. patient denies nausea and vommiting Related Data Allergies Allergy/AdvReac Type Severity Reaction Status Date / Time trimethoprim [From BACTRIM] Allergy Mild Verified 08/24/20 10:01 codeine [CODEINE] Allergy Unknown Verified 08/24/20 10:01 <Rufino Hector MD - Last Filed: 05/10/24 23:06> History of Present Illness HPI narrative: Please note that above description of symptoms, in this electronic medical record under categorization of recalled from ER triage doctor by RN are reflective of an initial nursing assessment, however, is not reflective of my full history and physical exam that was personally taken and clarified. Consequentially, this preceding description of symptoms, which may include the patient's categorized chief complaint in the EMR, do not reflect my personal clinical impression, and the ultimate description of history of present illness and patient stated complaints should be deferred to this section of the note. Unless stated otherwise or congruent with this section of the note, additional signs, symptoms, or incongruence should be interpreted as inaccurate with my clinical impression. PFSH <KARINA Garay - Last Filed: 05/10/24 20:19> [facility] Disclaimer: The information contained in this section may have been updated after the patient was seen, as this information can be updated by other users. Surgical History S/P tympanic tube insertion History of cholecystectomy Social History (Updated 05/26/22 @ 13:15 by Mahi Crawford RN) Smoking Status: Never smoker second hand exposure: No alcohol intake: never substance use type: denies use current occupational status: other Travel in the last 8 weeks: None household members: family housing: house caffeine: Yes <KARINA Garay - Last Filed: 05/10/24 20:19> ROS Obtained: Yes Systems reviewed as appropriate & no additional complaints except as documented Physical Exam <KARINA Garay - Last Filed: 05/10/24 20:19> General General appearance: alert and in no apparent distress Head Head exam: atraumatic and normal inspection Eye Eye exam: Present normal appearance, PERRL and EOMI ENT ENT exam: Present normal exam, normal oropharynx and mucous membranes moist Neck Neck exam: Present normal inspection, full ROM and trachea midline; Absent lymphadenopathy Chest Chest inspection: Present normal inspection and symmetric chest wall rise Respiratory Respiratory exam: Present normal lung sounds bilaterally; Absent accessory muscle use Cardiovascular Cardiovascular exam: Present regular rate, normal rhythm, normal heart sounds, +S1 and +S2 Abdominal Exam Abdominal exam: Present soft and normal bowel sounds; Absent tenderness, guarding or rebound Extremities Exam Extremities exam: Present normal inspection and full ROM Neurological Exam Neurological exam: Present alert, oriented X3 and CN II-XII intact Psychiatric Psychiatric exam: Present normal affect and normal mood Skin Skin exam: Present warm, dry and normal color Lymphatic Lymphatic Findings: no adenopathy <Rufino Hector MD - Last Filed: 05/10/24 23:06> Chest Chest inspection: Present tenderness (Tenderness to deep palpation left inferior/posterior lateral chest wall. No outward signs of injury or deformity. No overlying skin changes); Absent rash Abdominal Exam Abdominal exam: Absent distention Back Exam Back exam: Absent CVA tenderness (R) or CVA tenderness (L) Medical Decision Making <KARINA Garay - Last Filed: 05/10/24 20:19> Vital Signs: 05/10/24 19:59 05/10/24 20:20 05/10/24 22:41 Temperature 99.1 F 99.1 F 98.2 F Temperature Source Oral Pulse Rate 76 95 H Pulse Rate [Right] 76 Respiratory Rate 18 18 18 Blood Pressure 153/103 H 116/72 Blood Pressure [Right Arm] 153/103 H Blood Pressure Mean [Right Arm] 119 02 Sat by Pulse Oximetry 99 Oxygen Delivery Method Room Air Lab Data Lab Results 05/10/24 20:10: WBC 9.4, RBC 5.61, Hgb 17.1, Hct 51.3, MCV 91.4, MCH 30.5, MCHC 33.4, RDW 13.1, Plt Count 180, MPV 10.3, Neut % (Auto) 58.8, Lymph % (Auto) 25.7, [place] % (Auto) 7.4, Eos % (Auto) 5.8, Baso % (Auto) 2.4 H, Neut # (Auto) 5.5, Lymph # (Auto) 2.4, [place] # (Auto) 0.7, Eos # (Auto) 0.5 H, Baso # (Auto) 0.2, APTT 27.0, Sodium 138, Potassium 4.3, Chloride 104, Carbon Dioxide 28, Anion Gap 10.3, BUN 22 H, Creatinine 1.30 H, Estimated Creat Clear 90, Estimated GFR 62, Est GFR ( Amer) 75, Glucose 95, Calcium 9.1, Magnesium 2.1, Total Bilirubin 0.8, AST 32, ALT 27, Alkaline Phosphatase 57, Troponin I < 0.01, Total Protein 7.8, Albumin 4.6, Globulin 3.2, Albumin/Globulin Ratio 1.4, Lipase 75 05/10/24 21:33: Urine Color Yellow, Urine Appearance Clear, Urine pH 6.5, Ur Specific [place] 1.020, Urine Protein Trace, Urine Glucose (UA) Negative, Urine Ketones Negative, Urine Blood Negative, Urine Nitrate Negative, Urine Bilirubin Negative, Urine Urobilinogen 1.0, Ur Leukocyte Esterase Negative, Urine RBC None, Urine WBC Occasional, Ur Squamous Epith Cells None, Urine Bacteria Trace 05/10/24 20:10 05/10/24 20:10 Orders (Tests/Meds): ED MEDICATIONS Discontinued Medications Generic Name Dose Route Start Last Admin Trade Name Nadine PRN Reason Stop Dose Admin Acetaminophen 1,000 mg 05/10/24 20:09 05/10/24 20:22 Acetaminophen 500mg Tab PO 05/10/24 20:10 1,000 mg ONCE ONE Administration Ketorolac Tromethamine 15 mg 05/10/24 20:09 05/10/24 20:22 Ketorolac 30mg/Ml Vial IV 05/10/24 20:10 15 mg ONCE ONE Administration ORDERS Category Date Time Status CXR 2 view (NOT portable) [XR chest 2V] Stat Exams 05/10/24 20:09 Completed Complete Blood Count Auto Diff Stat Lab 05/10/24 20:10 Completed Comprehensive Metabolic Panel Stat Lab 05/10/24 20:10 Completed Lipase Stat Lab 05/10/24 20:10 Completed MAG [Magnesium] Stat Lab 05/10/24 20:10 Completed PTT [Activated Partial Thrombo Time] Stat Lab 05/10/24 20:10 Completed Troponin I Q3H Lab 05/10/24 23:15 Ordered Troponin I Stat Lab 05/10/24 20:10 Completed Urinalysis and Microscopic Stat Lab 05/10/24 21:33 Completed Medical Decision Narrative: In summary patient is a [age, sex] who presents to the emergency department for evaluation of [complaint]. Patient is [hemodynamically stable/unstable] upon arrival, [febrile/afebrile]. [Unremarkable physical exam, nonfocal exam versus focal remarkable exam]. Differential diagnosis includes [DDx]. Initial workup will be conducted with [hematologic labs, imaging, respiratory swab, describe workup]. Initial interventions include [crystalloid bolus, medications, p.o. challenge, etc.] initial workup reviewed by me [hematologic labs are remarkable for... Imaging remarkable for... Urinalysis remarkable for]. Upon repeat evaluation [patient had acceptable resolution of symptoms, had persistent pain for which additional interventions were conducted (describe interventions), tolerated p.o., was ambulatory, etc.]. Given this [patient is appropriate for discharge at this time and will be discharged with a prescription for... The case was discussed with hospital medicine regarding management and they will admit the patient their service for continued evaluation at this time... Etc.] Places where you can increase complexity: I informally interpreted the patient's chest x-ray or CT read and is remarkable for... Documenting what the monitor and storage bin tender shows with rate and rhythm Consideration of test but deferring. Ex: I considered chest x-ray on this patient however given that they have no oxygen requirement and are clear to auscultation all lung delcid will be deferred. Social determinants of health: Given that patient is undomiciled increases complexity. Given that patient has polysubstance abuse compounds all aspects of care <Rufino Hector MD - Last Filed: 05/10/24 23:06> Medical Records Medical records reviewed: Yes I reviewed the patient's medical records. Marco Inquiry Pt receiving controlled substance: No Marco was queried for this patient: No Vital Signs: 05/10/24 19:59 05/10/24 20:20 05/10/24 22:41 Temperature 99.1 F 99.1 F 98.2 F Temperature Source Oral Pulse Rate 76 95 H Pulse Rate [Right] 76 Respiratory Rate 18 18 18 Blood Pressure 153/103 H 116/72 Blood Pressure [Right Arm] 153/103 H Blood Pressure Mean [Right Arm] 119 02 Sat by Pulse Oximetry 99 Oxygen Delivery Method Room Air Lab Data Lab Results 05/10/24 20:10: WBC 9.4, RBC 5.61, Hgb 17.1, Hct 51.3, MCV 91.4, MCH 30.5, MCHC 33.4, RDW 13.1, Plt Count 180, MPV 10.3, Neut % (Auto) 58.8, Lymph % (Auto) 25.7, [place] % (Auto) 7.4, Eos % (Auto) 5.8, Baso % (Auto) 2.4 H, Neut # (Auto) 5.5, Lymph # (Auto) 2.4, [place] # (Auto) 0.7, Eos # (Auto) 0.5 H, Baso # (Auto) 0.2, APTT 27.0, Sodium 138, Potassium 4.3, Chloride 104, Carbon Dioxide 28, Anion Gap 10.3, BUN 22 H, Creatinine 1.30 H, Estimated Creat Clear 90, Estimated GFR 62, Est GFR ( Amer) 75, Glucose 95, Calcium 9.1, Magnesium 2.1, Total Bilirubin 0.8, AST 32, ALT 27, Alkaline Phosphatase 57, Troponin I < 0.01, Total Protein 7.8, Albumin 4.6, Globulin 3.2, Albumin/Globulin Ratio 1.4, Lipase 75 05/10/24 21:33: Urine Color Yellow, Urine Appearance Clear, Urine pH 6.5, Ur Specific [place] 1.020, Urine Protein Trace, Urine Glucose (UA) Negative, Urine Ketones Negative, Urine Blood Negative, Urine Nitrate Negative, Urine Bilirubin Negative, Urine Urobilinogen 1.0, Ur Leukocyte Esterase Negative, Urine RBC None, Urine WBC Occasional, Ur Squamous Epith Cells None, Urine Bacteria Trace Orders (Tests/Meds): ED MEDICATIONS Discontinued Medications Generic Name Dose Route Start Last Admin Trade Name Freq PRN Reason Stop Dose Admin Acetaminophen 1,000 mg 05/10/24 20:09 05/10/24 20:22 Acetaminophen 500mg Tab PO 05/10/24 20:10 1,000 mg ONCE ONE Administration Ketorolac Tromethamine 15 mg 05/10/24 20:09 05/10/24 20:22 Ketorolac 30mg/Ml Vial IV 05/10/24 20:10 15 mg ONCE ONE Administration ORDERS Category Date Time Status CXR 2 view (NOT portable) [XR chest 2V] Stat Exams 05/10/24 20:09 Completed Complete Blood Count Auto Diff Stat Lab 05/10/24 20:10 Completed Comprehensive Metabolic Panel Stat Lab 05/10/24 20:10 Completed Lipase Stat Lab 05/10/24 20:10 Completed MAG [Magnesium] Stat Lab 05/10/24 20:10 Completed PTT [Activated Partial Thrombo Time] Stat Lab 05/10/24 20:10 Completed Troponin I Q3H Lab 05/10/24 23:15 Ordered Troponin I Stat Lab 05/10/24 20:10 Completed Urinalysis and Microscopic Stat Lab 05/10/24 21:33 Completed Medical Decision Narrative: 38-year-old male no relevant medical history presenting with left posterior lateral chest wall pain. Patient states he was eating lunch about 1 PM today and started having chest wall pain on the left side. No vomiting, fevers, chills, shortness of breath, diarrhea, constipation, urinary symptoms, or any other symptoms at all. He says it is a dull/sharp pain that does not radiate. Has not taken anything for the pain. Has never had anything like this in the past, denies any history of trauma. History was obtained via conversation with patient. On arrival, patient hemodynamically stable, alert, oriented x4, appropriate, GCS 15, moving all extremities spontaneously, pupils equal and reactive to light. Full physical exam performed and significant for very well-appearing male in no acute distress. Chest wall visibly normal. Breath sounds normal bilaterally anterior and posteriorly. Chest wall minimally tender with application of moderate pressure, no evidence of crepitus. No flank tenderness, abdominal tenderness, or any other findings. No rash. Differential includes intercostal muscle strain, UTI, pyelonephritis, nephrolithiasis, malignancy, pancreatitis, ACS, VA, atypical angina, among others. Patient placed on continuous cardiac monitoring and continuous pulse ox with initial blood pressure 153/1 at, heart rate 76, saturation 99% on room air. Independent interpretation of EKG shows sinus rhythm [address] or T wave changes concern for acute ischemia. PA 161, QRS 89, QTc 397. Patient was given Toradol and Decadron for symptomatic management and correction of underlying abnormalities. Workup independently interpreted and significant for nonactionable CBC or chemistry other than mild SHAWN 1.3. Patient troponin negative, urinalysis without concern for UTI or hematuria. On independent interpretation of imaging, no acute intrathoracic findings. See radiology read for full review of final results. On reevaluation, patient's pain moderately improved. He states that he has been sneezing and coughing recently, could be related to ocular strain. Because patient at baseline without signs or symptoms of clinical decompensation, deemed appropriate for discharge. Results were relayed to patient who voiced understanding and were agreeable to outpatient management and follow up. I discussed my clinical impression with patient and answered all questions. At this time, the evidence for any other entities in the differential is insufficient to warrant any further testing or ED observation. This was explained as well. Advisory was given that persistent or worsening symptoms require further evaluation. I confirmed the understanding of this discussion. Central Lab Technician disclaimer Much of this encounter note is an electronic professor of communication arts spoken language to printed text. Electronic professor of communication arts of the spoken language may permit errors. Although I have reviewed the note, some errors may still exist. Critical Care <Rufino Hector MD - Last Filed: 05/10/24 23:06> Critical Care Time Critical Care Time: No
[2024-05-10 20:20] VITALS: BP 153/103; PULSE 76; RESP 18; TEMP 37.3
[2024-05-10 20:21] LABS: Basophils # 0.2 K/mm3 (0-0.2); Basophils % 2.4 % (0.1-2.0); Eosinophils # 0.5 K/mm3 (0.0-0.4); Eosinophils % 5.8 % (0.1-12.0); Hematocrit 51.3 % (42.0-52.0); Hemoglobin 17.1 g/dL (14.1-18.0); Lymphocytes # 2.4 K/mm3 (0.7-4.5); Lymphocytes % 25.7 % (10-50); Mean Corpuscular HGB Conc 33.4 g/dL (31.8-35.4); Mean Corpuscular Hemoglobin 30.5 pg (27.0-31.2); Mean Corpuscular Volume 91.4 fl (80-94); Mean Platelet Volume 10.3 fl (7.4-10.4); Monocytes # 0.7 K/mm3 (0.1-1.0); Monocytes % 7.4 % (1.7-9.3); Neutrophils # 5.5 K/mm3 (1.8-7.8); Neutrophils % 58.8 % (37.0-80.0); Platelet Count 180 K/mm3 (142-424); Red Blood Count 5.61 M/mm3 (4.60-6.20); Red Cell Distribution Width 13.1 % (11.5-17.5); White Blood Count 9.4 K/mm3 (4.8-10.8)
[2024-05-10] MEDS: KETOROLAC 30MG/ML VIAL 15 MG IV (20:22)
[2024-05-10] MEDS: ACETAMINOPHEN 500MG TAB 1000 MG PO (20:22)
[2024-05-10 20:24] LABS: Albumin Level 4.6 g/dl (3.5-5.0); Chloride 104 mmol/L (98-107); Potassium 4.3 mmoL/L (3.5-5.1); Sodium 138 mmol/L (136-145)
[2024-05-10 20:26] LABS: Blood Urea Nitrogen 22 mg/dl (9-20); Creatinine Clearance Estimated 90 mL/min (50-200); Estimated Glomerular Filt Rate 62 ml/min (>60); GFR (African American) 75 ML/MIN (>60)
[2024-05-10 20:27] LABS: Alanine Aminotransferase 27 U/L (12-78); Albumin/Globulin Ratio 1.4 (1.1-1.8); Alkaline Phosphatase 57 U/L (38-126); Anion Gap 10.3 mEq/L (5-15); Aspartate Amino Transferase 32 U/L (17-59); Bilirubin,Total 0.8 mg/dl (0.2-1.3); Calcium 9.1 mg/dl (8.4-10.2); Carbon Dioxide 28 mmol/L (22.0-30.0); Globulin 3.2 g/dL (1.3-3.2); Glucose 95 mg/dl (74-100); Lipase 75 U/L (23-300); Total Protein,Serum 7.8 g/dl (6.3-8.2)
[2024-05-10 20:33] LABS: Magnesium 2.1 mg/dl (1.6-2.3)
--- NOTE | 2024-05-10 20:36 | PC.NURSE ---
Pt provided urinal for UA
[2024-05-10 20:40] LABS: Troponin I < 0.01 ng/ml (0.00-0.034)
--- NOTE | 2024-05-10 21:36 | PC.NURSE ---
UA just collected
[2024-05-10 21:46] LABS: Microscopic, Urine URINE MICROSCOPIC (MICROSCOPIC)
[2024-05-10 21:50] LABS: Appearance,Urine CLEAR (Clear); Bilirubin,Urine Negative (Negative); Blood, Urine Negative (Negative); Color,Urine YELLOW (Yellow); Glucose,Urine (UA) Negative (Negative); Ketones,Urine Negative (Negative); Leukocyte Esterase,Urine Negative (Negative); Nitrate,Urine Negative (Negative); PH,Urine 6.5 (5.0-8.5); Protein,Urine TRACE (Negative)
[2024-05-10 22:18] LABS: Bacteria,Urine Trace /lpf; WBC,Urine Occasional #/hpf (0-3)
[2024-05-10 22:41] VITALS: BP 116/72; PULSE 95; RESP 18; TEMP 36.8
== END 2024-05-10 22:46 | disposition home or self-care (01) ==
PROVIDERS: Emergency Provider Emergency Medicine; PCP Family Medicine
DX: R10.32 Left lower quadrant pain (principal); M54.59 Other low back pain
CPT/HCPCS: 71046; 80053; 81001; 83690; 83735; 84484; 85025; 85730; 93005; 96374; 99284; J1885

== ENCOUNTER 2025-09-06 14:15 | Outpatient (CLI) | payer OTHER, SELFPAY ==
--- OUTSIDE RECORDS SUMMARY | 2025-09-07 16:59 | XMS_ITS | Data Portability ---
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 He is complaining of left upper quadrant pain and occasionally has some epigastric pain. He has no issue with regard to nausea or vomiting and no food intolerance. He's had an ultrasound which was negative and HIDA scan which showed a 70% ejection fraction. He is here today for evaluation recommendations. Past medical history was reviewed with the patient and documented the chart. Physical exam: Respiration 16 pulse 82 blood pressure 115/75. Gen.: Well-developed: Oriented 3: No obvious distress Chest: Lungs are clear to auscultation; HRT - RRR w/o murmer Nl S1& S2 Abdomen: Soft nontender nondistended positive bowel sounds no masses no hepatosplenomegaly Extremities: Positive pulses no signs clubbing or edema. Assessment: I discussed situation with Mr. Mccormack informed him that all his tests were negative. He is adamant that he has abdominal pain and is probably his gallbladder. I attempted to do informed him that I cannot resect his gallbladder based on these findings alone. I recommended a CT scan at and pelvis which she has agreed to. [email or web address] Not available 03/14/2018 11:08:14 09/12/2018 09/12/2018 Mr. Mccormack return s after CT scan abdomen and pelvis. This does not identify any significant problems or issues. There is no surgical cause of his pain. I referred him to Dr. Alexander of GI for further evaluation. Spent over 15 minutes with him discussing the situation [email or web address] Not available 09/12/2018 13:37:11 Plan of Treatment Reminders Order Date Submit Date Provider Last Modified By Organization Details Last Modified Time Details Appointments None record ed. Lab None record ed. Referral None record ed. Procedures None record ed. Surgeries None record ed. Imaging None record ed. Medication Orders None record ed. Patient TargetsNo targets recorded. Patient Instructions Encounter Date Encounter Id Patient Instructions Last Modified By Organization Details Last Modified Time 03/14/2018 [id number] abdominal pain: care instructions [email or web address] Not available 03/14/2018 11:08:14 Reason for Referral None Reported. Results Created Date Observation Date Name Description Value Unit Range Abnormal Flag Note LastModifiedBy Organization Detail LastModifiedTime 09/12/20 18 09/12/2018 CT, abdom en, w/ contr ast [facility] [address] [facility] [place] [address] [place] t Name: DEEPTHI Batista t : 1984 [place] Orderi ng Provid er: IRAM RENE EXAM DATE: 2017 EXAM: CT ABDOME N WITH CONTRA ST CLINIC AL INFORM ATION: Left upper quadra nt and epigas tric pain. TECHNI QUE: Multip le axial CT images of the abdome n were obtain ed after inject ion of Isovue 300, 100 ml (1 x 100 ml bottle s of [facility] [id number] ) IV. Bowel was opacif ied with oral contra st. COMPAR CHANDRA: None. FINDIN GS ON CT ABDOME N: LOWER THORAX : Lung bases are clear. No obviou s cardia c abnorm ality. UPPER ABDOMI NAL ORGANS : Liver, gallbl adder, spleen , pancre as, adrena ls and both kidney s are normal . BOWEL AND MESENT RITO: Stomac h, small bowel and colon are normal . No mesent jericho lympha denopa thy or perito bridget free fluid. RETROP ERITON EUM: Aorta, IVC and their branch es are patent and normal . No retrop eriton eal lympha denopa thy. ABDOMI NAL WALL AND SKELET AL STRUCT URES: Normal . IMPRES STELLA: 1. No acute intra- abdomi nal abnorm ality. 2. No cause of abdomi nal pain has been demons trated . Interp reted By: Josse Nevarez MD Electr onical ly Signed By: Josse Nevarez MD on 2017 10:37 AM [email or web address] [facility] Radiology [facility] [address] [place] [address], [id number], 2018 08:40:46 Result Notes Documentation Provider Name and Address Organization Details Recorded Time Ct, Abdomen, W/ Contrast : [address] [address] Patient Name: DYAN MCCORMACK Patient : 1985 Patient Ordering Provider: MABEL NGUYEN EXAM DATE: 09/12/2018 EXAM: CT ABDOMEN WITH CONTRAST CLINICAL INFORMATION: Left upper quadrant and epigastric pain. TECHNIQUE: Multiple axial CT images of the abdomen were obtained after injection of Isovue 300, 100 ml (1 x 100 ml bottles of ND [id number]) IV. Bowel was opacified with oral contrast. COMPARISON: None. FINDINGS ON CT ABDOMEN: LOWER THORAX: Lung bases are clear. No obvious cardiac abnormality. UPPER ABDOMINAL ORGANS: Liver, gallbladder, spleen, pancreas, adrenals and both kidneys are normal. BOWEL AND MESENTERY: Stomach, small bowel and colon are normal. No mesenteric lymphadenopathy or peritoneal free fluid. RETROPERITONEUM: Aorta, IVC and their branches are patent and normal. No retroperitoneal lymphadenopathy. ABDOMINAL WALL AND SKELETAL STRUCTURES: Normal. IMPRESSION: 1. No acute intra-abdominal abnormality. 2. No cause of abdominal pain has been demonstrated. Interpreted By: Eric Nevarez MD Marvin NGUYEN MD [facility] [place], [address], [facility] 2018 08:40:46 Problems Name Problem SNOMED Code Status Onset Date Resolution Date Notes Provider Name and Address Organization Details Recorded Time Abdominal pain 78681701 Active 018 Smiley Hernandez [facility] 8 11:24:18 Problem Notes None recorded. Medical Equipment None Reported. Allergies Allergen ID Allergen Name Allergen Category Reaction Reaction Severity Criticality Documentation Date Start Date Code Code System Note Provider Name and Address Organization Details Recorded Time 477289 codeine medicatio n Not available Not available Not available 08/17/20162015 2670 RxNorm Comme nt: Ibrahima ed By: Dinora black Date: 016 11:23 :29 AM; Not Available [facility] 6 09:49:55 Medications Name Sig Start Date Stop Date Status Note LastModified by Organization Details LastModified Time loperamide 2 mg capsule 09/12 completed Not Available Not Available Not Available prednisone 20 mg tablet 03/14 completed Not Available Not Available Not Available clindamycin HCl 150 mg capsule active Not Available Not Available Not Available metronidazole 500 mg tablet 03/14 completed Not Available Not Available Not Available ofloxacin 0.3 % ear drops 03/14 completed Not Available Not Available Not Available amoxicillin 875 mg tablet 09/12 completed Not Available Not Available Not Available amoxicillin 875 mg-potassium clavulanate 125 mg tablet 03/14 completed Not Available Not Available Not Available Xarelto 20 mg tablet Take 1 tablet every day by oral route. 09/12 completed Not Available Not Available Not Available Vitals Date Recorded Body height Body mass index (BMI) Body weight Heart rate Respiratory rate Systolic And Diastolic Provider Name and Address Organization Details Last Updated DateTime 8 162.56 cm 27.5 kg/m2 18722.7 8 g 74 /min 14 /min 115/75 mm[Hg] Adelina Wells [facility] 8 10:33:43 Date Recorded Body height Body mass index (BMI) Body weight Heart rate Systolic And Diastolic Provider Name and Address Organization Details Last Updated DateTime 09/12/2018 162.56 cm 27.5 kg/m2 08839.78 g 91 /min 118/62 mm[Hg] Smiley David [facility] 8 11:23:24 Social History Question Answer Notes LastModified by Organizat ion Details LastModified Time Tobacco Smoking Status Never [facility] 03/14/2018 10:34:47 How Many Years Have You Consumed Alcohol? 0 Information not available 03/14/2018 What Was The Date Of Your Most Recent Tobacco Screening? 03/14/2018 8 Information not available 11/10/2019 Has Tobacco Cessation Counseling Been Provided? No [email or web address] Information not available 03/14/2018 Sex: Unknown Functional Status None recorded. Mental Status None recorded. Family History Relationship Description Onset Age of this Age Resolved Age Notes LastModified by Organization Details LastModified Time Father No current problems or disability [email or web address] Not available 02/22 10:34:33 Mother No current problems or disability [email or web address] Not available 02/22 10:34:33 Medical History Condition Response Other Y Past Encounters Encounter ID Performer Location Encounter Start Date Encounter Closed Date Diagnosis/Indication Diagnosis SNOMED-CT Code Diagnosis ICD10 Code Diagnosis IMO Codes Diagnosis Note [id number] Marvin NGUYEN MD [facility] [address] [address] 03/14/2018 10:02:41 03/14/2018 11:19:25 Abdominal pain 92162175 R10.9 [id number] Marvin NGUYEN MD GENERAL SURGERY [address] [address] 09/12/2018 10:46:30 09/12/2018 13:48:09 Health Concerns Section Related Observation LastModified by Organization Detai ls LastModified Time None Recorded Concern Status LastModified by Organization Details LastModified Time None Recorded Advance Directives Directive None Recorded Payers Insurance Date Sequence Insurance Name Policy Number Policy Kraft Covered Member ID Kraft Member ID Guarantor Name 08/17/2020 1 [id number] [id number] Dyan Mccormack [id number] Dyan Mccormack
== END 2025-09-06 23:59 | disposition home or self-care (01) ==
LOC: LAB.DROPOF 09-07 16:54
PROVIDERS: PCP Nurse Practitioner; Visit Provider Nurse Practitioner
DX: T14.8XXA Other injury of unspecified body region, initial encounter (principal); B35.3 Tinea pedis
CPT/HCPCS: 87101